=== PATIENT | male | born 1965 | race African-American/Black ===

== ENCOUNTER 2017-07-03 22:51 | Emergency (ER) | payer MEDICAID, MEDICARE ==
[~2017-07-03] VITALS: Ht 170.2 cm; Wt 61.0 kg
[2017-07-03] MEDS ORDERED: SODIUM CHLORIDE 0.9% 1,000 ML IV SCH (23:09)
[2017-07-03] MEDS ORDERED: FAMOTIDINE 20MG/2ML VIAL IV ONE (23:15)
[2017-07-03] MEDS ORDERED: METHYLPREDNISOLONE SOD SUCC 125 MG/2 ML VIAL IV ONE (23:15)
[2017-07-03] MEDS ORDERED: DIPHENHYDRAMINE 50MG/ML VIAL IV ONE (23:15)
[2017-07-04 01:36] VITALS: BP 114/78
== END 2017-07-04 01:37 | disposition home or self-care (01) ==
LOC: ER 23:10
DX: T78.1XXA Other adverse food reactions, not elsewhere classified, initial encounter (principal); R00.1 Bradycardia, unspecified; J45.909 Unspecified asthma, uncomplicated; X58.XXXA Exposure to other specified factors, initial encounter
CPT/HCPCS: 93005; 96361; 96374; 96375; 99284; J1200; J2930; J3490; J7030; Z7610